=== PATIENT | female | born 1955 | race Caucasian/White ===

== ENCOUNTER 2018-08-13 14:25 | Inpatient (IN) | payer MEDICARE ==
[~2018-08-13] VITALS: Ht 165.1 cm; Wt 68.0 kg
[2018-08-13] MEDS ORDERED: LYRICA100 MG PO (14:30)
[2018-08-13] MEDS ORDERED: LEXAPRO20 MG PO (14:30)
[2018-08-13] MEDS ORDERED: ZANAFLEX4 MG PO (14:31)
[2018-08-13] MEDS ORDERED: TRAMADOL HCL E100 M1 PO (14:32)
[2018-08-13] MEDS ORDERED: ALENDRONATE SOD40 MG PO (14:32)
[2018-08-13] MEDS ORDERED: ATIVAN0.5 MG PO (14:33)
[2018-08-13] MEDS ORDERED: VITAMIN D5000 UNIT PO (14:33)
[2018-08-13] MEDS ORDERED: VITAMIN D10000 UNI1 PO (14:33)
[2018-08-13 18:45] VITALS: BP 115/84
--- NOTE | 2018-08-13 19:20 | NUR ---
PT RESTING ON BED, NO S/S OF ACUTE DISTRESS NOTED AT THIS TIME. PT FAMILY AT BEDSIDE.
[2018-08-13 19:45] VITALS: BP 156/71
[2018-08-13 21:33] VITALS: BP 112/82; BMI 23.5
--- NOTE | 2018-08-13 22:44 | NUR ---
DAUGHTER AT BEDSIDE STATED THAT MAX HAS OSTEOPOROSIS HAS BEEN ON FOSAMAX FOR ONE YEAR. STATED SHE AHS ISSUES WITH ANESTHESIA REQUIRES A LOT TO GO UNDER AND IS HARD TO COME OUT.
[2018-08-14] VITALS (7 sets, daily range): BP systolic 103–133; BP diastolic 52–75
[2018-08-14] MEDS ORDERED: ALBUTEROL SULF8.5 GM (02:27)
[2018-08-14] MEDS ORDERED: ANORO ELLIPTA1 EACH INH (02:31)
[2018-08-14 08:17] LABS: BASOPHILS 0.1 % (0-2); EOSINOPHILS 0.3 % (0-7); HEMATOCRIT 37.9 % (36.0-48.0); HEMOGLOBIN 12.6 g/dL (12-16); IMMATURE GRANULOCYTES 0.2 % (0-5); LYMPHOCYTES 18.6 % (15-50); MCH 30.9 pg (26.0-34.0); MCHC 33.2 g/dL (31.0-37.0); MCV 92.9 fL (80.0-100.0); MEAN PLATELET VOLUME 10.1 fL (7.4-10.4); MONOCYTES 6.9 % (2-11); NEUTROPHILS 73.9 % (40-80); PLATELET COUNT 288 10x3/uL (130-400); RBC 4.08 10x6/uL (4.00-5.40); RDW 13.1 % (11.5-14.5); WBC 10.3 10x3/uL (4.8-10.8)
[2018-08-14 09:02] LABS: ALBUMIN 3.3 g/dL (3.4-5.0); ALKALINE PHOSPHATASE 75 U/L (46-116); ALT (SGPT) 16 U/L (10-68); BILIRUBIN - TOTAL 0.41 mg/dL (0.2-1.3); CALC OSMOLALITY 270 mosm/kg (275-300); CALCIUM 8.1 mg/dL (8.5-10.1); CARBON DIOXIDE 26.9 mmol/L (21.0-32.0); CHLORIDE - SERUM 102 mmol/L (98-107); CREATININE - SERUM 0.8 mg/dL (0.6-1.3); GLUCOSE 114 mg/dL (74-106); POTASSIUM - SERUM 3.6 mmol/L (3.5-5.1); PROTEIN - SERUM 7.1 g/dL (6.4-8.2); SODIUM 136 mmol/L (136-145); UREA NITROGEN 8 mg/dL (7-18); eGFR NON AFRICAN AMERICAN 76 mL/min (90-120)
--- NOTE | 2018-08-14 11:19 | NUR ---
ARRIVE BACK TO ROOM VIA BED FROM OR. LT LEG TAINA WRAPPED IN IMMOBILIZER. BP-123/75, HR-74, O2-95% WITH 2L NC. DC MORPHINE FUR TRAPPER ORDERED. SLEEPING IN BED. AROUSES TO VOICE. DENIES ANY NEEDS. CONTINUE PLAN OF CARE AND SAFETY PRECAUTIONS.
--- NOTE | 2018-08-14 17:00 | NUR ---
ALERT AND ORIENTED X4. LAYING IN BED. LT LEG IMMOBILIZER BRACE ON. DRESSING CLEAN DRY INTACT. PULSE PALPABLE BILATERALLY. TEMPERATURE WNL. DENIES PAIN AT THIS TIME. CONTINUE PLAN OF CARE AND SAFETY PRECUATIONS.
--- NOTE | 2018-08-14 18:49 | OP ---
PATIENT NAME: MAX BANKS MEDICAL RECORD: [id number] :53 LOCATION:D.M3 D.1209 ADMISSION DATE:08/13/18 SURGEON: WANG GONZALES DO DATE OF OPERATION: 08/14/2018 PROCEDURE PERFORMED: Left tibial plateau open reduction and internal fixation. PREOPERATIVE DIAGNOSIS: Closed left displaced lateral tibial plateau fracture. POSTOPERATIVE DIAGNOSIS: Closed left displaced lateral tibial plateau fracture. INDICATIONS: Ms. Banks is a 63-year-old female who fell off a porch on to a [employer] Technologies[employer] block yesterday, striking her left knee on it. She had pain and was not able to bear weight. She was brought to the ER. X-rays were taken and seen to have a tibial plateau fracture. She does not have any signs or symptoms of compartment syndrome. She was informed, due to the displacement and there was a longitudinal split down her shaft, it may not heal without surgery and may displace more. After hearing that, she understood she probably would need surgery and was informed of the risks including infection, bleeding, damage to nerves and vessels, compartment syndrome, continued pain as well as blood clots, pulmonary embolism, and even ; and she signed the consent. SURGEON: Wang Gonzales DO DESCRIPTION OF PROCEDURE: The patient received a block by anesthesia in the preoperative area. He was taken to the operative suite, put in the supine position, given general anesthetic, and an LMA was placed. She was given 2 grams of Ancef prior to starting. The left lower extremity was prepped and draped in sterile fashion. A time-out was performed and everyone was in agreeance with correct side, site, patient, and procedure. The incision was then marked out, hockey stick, along the lateral border of the tibia and then down the shaft. The Esmarch was used to exsanguinate the left lower extremity and the tourniquet was inflated to 350 mmHg, was up for 43 minutes. The incision was then begun with a #10 blade scalpel through the skin. Then, a Bovie was used to go through the fascia and the IT band on the lateral knee. The proximal portion of the anterior tip attachment on the tibia was taken down to clear plate. Plate was then placed in good position and confirmed on AP and lateral. Once I had good position of the plate, it was fixed with K-wires and then 4 screws were put in the proximal plate. One was compression screw and the other 3 were locking. Attention was then drawn to the shaft. Three screws were put down into the shaft at that time, securing the plate down very nicely and the fracture was reduced very well. Two kickstand screws were then put in and then 2 more locking screws were put in more proximally in the plate and then the compression screw was removed from the more proximal holes and changed out for a locking screw. Once these were all locked into place, final x-rays were taken, AP and lateral, confirming good position and good fixation of the fracture, and good joint line reduction. The tourniquet was let down at 43 minutes. Any bleeders were coagulated at that time. The fascia then was loosely closed over the plate with #1 Vicryl in a gguptw-fa-jfzvj fashion and then the skin was closed with 2-0 Vicryl in inverted interrupted. ZipLine was then placed on the incision. Adaptic, 4 x 4, ABD, Webril, and Joel wrap were then placed on the knee. Knee was placed in the knee immobilizer. Prior to the skin being closed, I did aspirate the knee through a superolateral approach with an 18-gauge spinal needle and 60 cc syringe, and 20 mL of estephanie blood was aspirated out of the knee joint. Then, the knee was closed as described. The patient was then awakened OPERATIVE REPORT [id number] MAX BANKS after being dressed and put in knee immobilizer, and taken to recovery in stable condition. BLOOD LOSS: Approximately 50 mL. COMPLICATIONS: None. TRANSINT:[id number] Voice Confirmation ID: [id number] DOCUMENT ID: [id number] WANG GONZALES DO at 1849 CC: [id number] DICTATION DATE: 08/14/18 1051 TETRYL DISSOLVER OPERATOR: 08/14/18 1804 ADM IN [facility] [address] [place] [address]
--- NOTE | 2018-08-14 19:27 | NUR ---
PT IN BED. FAMILY AT BEDSIDE. PT DENIES NEEDS AT THIS TIME.
[2018-08-15] VITALS (7 sets, daily range): BP systolic 91–136; BP diastolic 40–61; Ht 165.1 cm; Wt 68.0 kg
[2018-08-15 07:35] LABS: HEMATOCRIT 33.1 % (36.0-48.0)
[2018-08-15 07:49] LABS: ANION GAP 13.2 mmol/L (8-16); CALCIUM 8.1 mg/dL (8.5-10.1); CARBON DIOXIDE 27.9 mmol/L (21.0-32.0); POTASSIUM - SERUM 3.1 mmol/L (3.5-5.1)
--- NOTE | 2018-08-15 11:13 | NUR ---
IV TO LEFT AC IS LEAKING D/C WITH CATHETER INTACT. RESITED TO RIGHT FOREARM AFTER 2 ATTEMPTS WITH 22G. TOLERATED WELL. GIVEN 15MG TORADOL SLOW IVP FOR C/O LEFT KNEE PAIN LEVEL 9. WILL MONITOR.
--- NOTE | 2018-08-15 12:01 | MORECARE ---
CASE MANAGEMENT DISCHARGE SUMMARY PATIENT: MAX HERNANDEZ UNIT: [id number] ADM DATE: 08/13/18 AGE: 63 : 54 SEX: F ROOM/BED: D.1209 AUTHOR: PRERNA NG PHYSICIAN: REFERRING PHYSICIAN: LISA EVANGELISTA MD DATE OF SERVICE: 08/15/18 Discharge Plan Patient Name: MAX HERNANDEZ Facility: [facility]:[place] : 1955 Planned Disposition: Inpatient Rehab Facility Anticipated Discharge Date: 08/16/18 Discharge Date: Expected LOS: 3 Initial Reviewer: [email or web address] Initial Review Date: 08/13/2018 Generated: 08/15/18 1:01 pm Patient Name: MAX HERNANDEZ Page 54710 at 1201 All edits/amendments must be made on the electronic document DICTATION DATE: 08/15/18 1201 REAR LOAD TRUCK DRIVER: IVANA 08/15/18 1201 RPT#: [id number] DC DATE: STATUS: ADM IN [facility] [address] [place] [address] END OF REPORT
--- NOTE | 2018-08-15 12:08 | MORECARE ---
CASE MANAGEMENT DISCHARGE SUMMARY PATIENT: MAX HERNANDEZ UNIT: [id number] ADM DATE: 08/13/18 AGE: 63 : 54 SEX: F ROOM/BED: D.1209 AUTHOR: PRERNA NG PHYSICIAN: REFERRING PHYSICIAN: LISA EVANGELISTA MD DATE OF SERVICE: 08/15/18 Discharge Plan Patient Name: MAX HERNANDEZ Facility: [facility]:[place] : 1955 Planned Disposition: Inpatient Rehab Facility Anticipated Discharge Date: 08/16/18 Discharge Date: Expected LOS: 3 Initial Reviewer: [email or web address] Initial Review Date: 08/13/2018 Generated: 08/15/18 1:08 pm DCPIA - Discharge Planning Initial Assessment Updated by [email or web address]: Natalie Peres on 08/15/18 12:05 pm * Is the patient Alert and Oriented? Yes * How many steps to enter\exit or inside your home? four * PCP DR Wang Mace * [facility] [address] * Preadmission Environment Home Alone * ADLs Independent * Equipment Cane * Other Equipment None * List name and contact numbers for known caregivers / representatives who currently or will assist patient after discharge: Lesvia Abarca - [facility]- [phone] * Verbal permission to speak to the caregivers and representatives has been obtained from the patient. No * Community resources currently utilized None * Please name any agencies selected above. N/A * Additional services required to return to the preadmission environment? Yes * Can the patient safely return to the preadmission environment? No * Has this patient been hospitalized within the prior 30 days at any hospital? No Last DP export: 08/15/18 11:01 am Patient Name: MAX HERNANDEZ Page 37254 at 1208 All edits/amendments must be made on the electronic document DICTATION DATE: 08/15/181207 POLYGRAPH OPERATOR: IVANA 08/15/181207 RPT#: [id number] DC DATE: STATUS: ADM IN [facility] [address] [place] [address] END OF REPORT
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
--- NOTE | 2018-08-15 15:17 | NUR ---
ALERT AND ORIENTED X4. SITTING UP IN BED. DAUGHTER AT BEDSIDE. [employer] CHARGE SHEET FOR BRACE SIGNED, FAXED TO [employer]. CARMELITA WITH [facility] ENTERS ROOM FOR FITTING FOR BRACE. PAIN MANAGEMENT CONTINUED. SINUS RHYTM ON TELEMETRY. DENIES ANY NEEDS. CONTINUE PLAN OF CARE AND SAFETY PRECAUTIONS.
--- NOTE | 2018-08-15 15:50 | NUR ---
Rehab Prescreening Consult recieved and the chart has been reviewed. Currently she does not have the medical criteria to meet Medicare guidlines for admission to the ARU. Rehab will follow her while she is here and watch for any changes. Discussed with the LILI Juárez. Radha Haynes RN Clinical Liaison, Rehab
--- NOTE | 2018-08-15 18:34 | NUR ---
ALERT AND ORIENTED X4. NO CHANGE. PAIN MANAGEMENT CONTINUED. SINUS RHYTHM ON TELEMETRY. CONTINUE PLAN OF CARE AND SAFETY PRECAUTIONS.
--- NOTE | 2018-08-15 20:45 | NUR ---
PT REQ AND REC'D PRN PAIN MEDICATION AT THIS TIME. WCTM.
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
--- NOTE | 2018-08-16 03:18 | NUR ---
PT RESTING, EYES CLOSED. BED LOW. CL IN REACH. WCTM.
[2018-08-16 04:30] VITALS: BP 114/63
[2018-08-16 06:37] LABS: BASOPHILS 0.2 % (0-2); EOSINOPHILS 1.4 % (0-7); HEMATOCRIT 33.7 % (36.0-48.0); HEMOGLOBIN 11.1 g/dL (12-16); IMMATURE GRANULOCYTES 0.2 % (0-5); LYMPHOCYTES 27.6 % (15-50); MCH 30.7 pg (26.0-34.0); MCHC 32.9 g/dL (31.0-37.0); MCV 93.4 fL (80.0-100.0); MEAN PLATELET VOLUME 10.8 fL (7.4-10.4); MONOCYTES 7.8 % (2-11); NEUTROPHILS 62.8 % (40-80); RBC 3.61 10x6/uL (4.00-5.40); RDW 13.5 % (11.5-14.5); WBC 9.9 10x3/uL (4.8-10.8)
[2018-08-16 06:38] LABS: PLATELET COUNT 229 10x3/uL (130-400)
[2018-08-16 08:00] LABS: CARBON DIOXIDE 27.2 mmol/L (21.0-32.0); CREATININE - SERUM 0.9 mg/dL (0.6-1.3)
[2018-08-16 08:43] LABS: ANION GAP 11.4 mmol/L (8-16); POTASSIUM - SERUM 3.6 mmol/L (3.5-5.1)
[2018-08-16 09:23] VITALS: BP 94/45
[2018-08-16 12:30] VITALS: BP 92/37
[2018-08-16 16:15] VITALS: BP 111/67
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
--- NOTE | 2018-08-16 17:05 | NUR ---
OT NOTE:PT COMPLETED UE AROM AXS. PT COMPLETED SIMPLE HYGIENE TASK WITH SET UP. THANK YOU, BRITNEY MOELLER
--- NOTE | 2018-08-16 18:00 | NUR ---
ALERT AND ORIENTED X4. RESTING IN BED. PAIN MANAGEMENT CONTINUED. NO CHANGE. LT LEG IN IMMOBILIZER ELEVATED ON PILLOW. ICE APPLIED ON KNEE. DENIES ANY NEEDS AT THIS TIME. WAITING FOR REHAB PLACEMENT. CONTINUE PLAN OF CARE AND SAFETY PRECAUTIONS.
--- NOTE | 2018-08-16 19:19 | NUR ---
PT'S LIGHT GOING OFF, WENT TO ANSWER CALL LIGHT PT STATED THAT HER IV IS HURTING. IV SITE LOOKS RED AND SWOLLEN, IV FLUIDS TURNED OFF AT THIS TIME. WILL D/C IV AND START NEW IV. PT A/O X4, RESP EVEN AND NONLABORED ON 2L. BRACE IN PLACE TO LT KNEE. PT ASKING FOR ICE PACK FOR HER KNEE, WILL PROVIDE PT WITH ICE PACK. PT DENIES ANY OTHER NEEDS AT THIS TIME, CALL LIGHT IN REACH, NAD NOTED, WILL CONTINUE PLAN OF CARE.
[2018-08-16 20:00] VITALS: BP 108/50
--- NOTE | 2018-08-16 20:39 | NUR ---
TRIED STARTING NEW IV, WAS UNSUCCESSFUL AT THIS TIME. GAVE 100MG OF ULTRAM FOR PAIN LEVEL OF 10/10. PT DENIES ANY OTHER NEEDS AT THIS TIME, CALL LIGHT IN REACH, NAD NOTED, WILL CONTINUE TO MONITOR.
--- NOTE | 2018-08-16 21:26 | NUR ---
IBUPROFEN GIVEN FOR FEVER OF 100.2, ALSO GAVE ZANAFLEX PER PT REQUEST. HELPED PT TO BATHROOM AND BACK TO BED, PT REFUSED TO HAVE ANOTHER IV STARTED, STATED THAT SHE IS SUPPOSE TO BE GOING TO REHAB TOMORROW. PT DENEIS ANY OTHER NEEDS AT THIS TIME. CALL LIGHT IN REACH, NAD NOTED, WILL CONTINUE TO MONITOR.
--- NOTE | 2018-08-16 22:30 | NUR ---
PT RESTING COMFORTABLY IN BED WITH EYES CLOSED, DID NOT WANT HER PAIN MEDICATION AT THIS TIME. CALL LIGHT IN REACH, NAD NOTED, WILL CONTINUE TO MONITOR.
[2018-08-16 23:57] VITALS: BP 91/46
[2018-08-17 04:30] VITALS: BP 120/52
--- NOTE | 2018-08-17 04:52 | NUR ---
4MG OF DILAUDID GIVEN FOR PAIN LEVEL OF 8/10. ALSO PROVIDED PT WITH ORANGE JUICE. PT DENIES ANY OTHER NEEDS AT THIS TIME. CALL LIGHT IN REACH, NAD NOTED.
--- NOTE | 2018-08-17 05:51 | NUR ---
PT RATES PAIN LEVEL NOW 4/10. DENIES ANY NEEDS AT THIS TIME. CALL LIGHT IN REACH, NAD NOTED.
--- NOTE | 2018-08-17 07:30 | NUR ---
REC'D IN BED AWAKE AND ALERT. RESP EVEN AND ALERT WITH NO DISTRESS NOTED. CAN EXPRESS NEEDS AND WANTS. NO C/O NOTED VOICED. ASSESSMENT COMPLETED. C/BRIAN REACH AT BEDSIDE.
[2018-08-17 08:02] LABS: CALC OSMOLALITY 279 mosm/kg (275-300); CALCIUM 8.1 mg/dL (8.5-10.1); CARBON DIOXIDE 30.1 mmol/L (21.0-32.0); CHLORIDE - SERUM 103 mmol/L (98-107); CREATININE - SERUM 0.8 mg/dL (0.6-1.3); GLUCOSE 111 mg/dL (74-106); POTASSIUM - SERUM 3.5 mmol/L (3.5-5.1); SODIUM 139 mmol/L (136-145); UREA NITROGEN 14 mg/dL (7-18); eGFR NON AFRICAN AMERICAN 76 mL/min (90-120)
[2018-08-17 08:05] LABS: BASOPHILS 0.3 % (0-2); EOSINOPHILS 3.7 % (0-7); HEMATOCRIT 33.2 % (36.0-48.0); HEMOGLOBIN 10.8 g/dL (12-16); IMMATURE GRANULOCYTES 0.1 % (0-5); LYMPHOCYTES 26.8 % (15-50); MCH 30.9 pg (26.0-34.0); MCHC 32.5 g/dL (31.0-37.0); MCV 94.9 fL (80.0-100.0); MEAN PLATELET VOLUME 10.9 fL (7.4-10.4); MONOCYTES 8.4 % (2-11); NEUTROPHILS 60.7 % (40-80); PLATELET COUNT 246 10x3/uL (130-400); RDW 13.5 % (11.5-14.5); WBC 7.7 10x3/uL (4.8-10.8)
--- NOTE | 2018-08-17 09:01 | NUR ---
PT WAS MEDICATED WITH DILUADID 4 MG PER ORDERS FOR C/O PAIN. C/L IN REACH AT BEDSIDE
[2018-08-17 09:12] VITALS: BP 101/45
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
[2018-08-17 12:53] VITALS: BP 107/45
--- NOTE | 2018-08-17 13:07 | NUR ---
WAS MEDICATED WITH DILAUDID 4 MG PER ORDERS FOR C/O LEG PAIN. C/L IN REACH BEDSIDE
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
[2018-08-17] MEDS ORDERED: BAYER CHEWABLE81 MG PO (14:58)
--- NOTE | 2018-08-17 15:12 | NUR ---
OT NOTE: PERFORMED WELL TODAY. PT FRUSTRATED REGARDING STAFF ISSUES. PT STATES THAT SHE WANTS TO GO TO REHAB SO THAT SHE CAN IMPROVE AND RETURN HOME. PT PERFORMING BED MOB WITH MIN ASSIST; GROOMING AND FEEDING WITH SET UP; NWB ON L LE. PT WITH INCREASED PAIN REPORTED. DAVID KU, OTR/L
--- NOTE | 2018-08-17 16:09 | NUR ---
OT NOTE: PT COMPLETED BED MOB TASKS WITH SBA. THANK YOU, BRITNEY MOELLER
--- NOTE | 2018-08-17 16:36 | NUR ---
DC HOME AT THIS TIME VIA PRIVATE CAR.VOICE UNDERSTANDING OF DC ORDERS. WS GIVEN RX OF DILUADID 4 MG Q 6 HRS PRN FOR PAIN TO PT. SON AT BEDSIDE. STABLE CONDITION UPON DC
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
== END 2018-08-17 16:20 | DRG 493 ==
LOC: D.ER 14:25 → D.EDHOLD 20:18 → D.M3 20:18
PROVIDERS: Anesthesiology; Internal Medicine Nephrology; Orthopaedic Surgery; ADMIT Family Medicine; ATTEND Family Medicine
PROC: 0QSH04Z Reposition Left Tibia with Internal Fixation Device, Open Approach (ICD-10-PCS; principal; 2018-08-14 07:03)
DX: S82.142A Displaced bicondylar fracture of left tibia, initial encounter for closed fracture (principal); F17.213 Nicotine dependence, cigarettes, with withdrawal; D62 Acute posthemorrhagic anemia; X58.XXXA Exposure to other specified factors, initial encounter; J44.9 Chronic obstructive pulmonary disease, unspecified; E87.6 Hypokalemia

== ENCOUNTER → 2018-09-01 14:49 | Outpatient (CLI) | payer MEDICARE ==
[2018-08-15 15:28] VITALS: BMI 24.9
[~2018-09-01 14:49] MED LIST: ALBUTEROL SULF8.5 GM; ALENDRONATE SOD40 MG PO; ANORO ELLIPTA1 EACH INH; ATIVAN0.5 MG PO; BAYER CHEWABLE81 MG PO; LEXAPRO20 MG PO; LYRICA100 MG PO; TRAMADOL HCL E100 M1 PO; VITAMIN D10000 UNI1 PO; VITAMIN D5000 UNIT PO; ZANAFLEX4 MG PO
== END | disposition home or self-care (01) ==
LOC: D.CT 14:49
PROVIDERS: ATTEND Family Medicine
DX: H53.10 Unspecified subjective visual disturbances (principal)

== ENCOUNTER 2019-01-20 20:54 | Emergency (ER) | payer MEDICARE ==
[~2019-01-20] VITALS: Ht 165.1 cm; Wt 58.6 kg
[2019-01-20 21:03] VITALS: Ht 165.1 cm; Wt 58.6 kg
[2019-01-20 21:24] LABS: BASOPHILS 0.3 % (0-2); EOSINOPHILS 3.1 % (0-7); HEMATOCRIT 23.3 % (36.0-48.0); HEMOGLOBIN 7.7 g/dL (12-16); IMMATURE GRANULOCYTES 0.1 % (0-5); LYMPHOCYTES 37.8 % (15-50); MCH 28.1 pg (26.0-34.0); MEAN PLATELET VOLUME 8.9 fL (7.4-10.4); MONOCYTES 5.7 % (2-11); RBC 2.74 10x6/uL (4.00-5.40); RDW 15.7 % (11.5-14.5); WBC 6.7 10x3/uL (4.8-10.8)
[2019-01-20 21:25] LABS: PLATELET COUNT 513 10x3/uL (130-400)
[2019-01-20 21:37] LABS: ALBUMIN 3.4 g/dL (3.4-5.0); ANION GAP 9.8 mmol/L (8-16); BILIRUBIN - TOTAL 0.16 mg/dL (0.2-1.3); CALCIUM 8.7 mg/dL (8.5-10.1); CARBON DIOXIDE 29.6 mmol/L (21.0-32.0); CREATININE - SERUM 0.9 mg/dL (0.6-1.3); POTASSIUM - SERUM 3.4 mmol/L (3.5-5.1); PROTEIN - SERUM 6.9 g/dL (6.4-8.2)
[2019-01-21 02:45] VITALS: BP 96/55
== END 2019-01-21 02:37 | disposition other institution (70) ==
LOC: D.ER 20:54
PROVIDERS: Family Medicine
DX: K25.4 Chronic or unspecified gastric ulcer with hemorrhage (principal)

== ENCOUNTER 2020-02-02 08:10 | Day surgery (SDC) | payer MEDICARE ==
[2020-01-31 11:34] LABS: HEMATOCRIT 41.8 % (36.0-48.0); HEMOGLOBIN 13.9 g/dL (12-16); MCH 31.2 pg (26.0-34.0); MCHC 33.3 g/dL (31.0-37.0); MCV 93.9 fL (80.0-100.0); MEAN PLATELET VOLUME 9.7 fL (7.4-10.4); RBC 4.45 10x6/uL (4.00-5.40); RDW 16.4 % (11.5-14.5); WBC 7.2 10x3/uL (4.8-10.8)
[~2020-02-02] VITALS: Ht 162.6 cm; Wt 67.1 kg
[~2020-02-02 08:10] MED LIST changes: +ALENDRONATE SOD10 MG PO; -ALENDRONATE SOD40 MG PO; +SYMBICORT 80-10.2 GM INH; +VITAMIN D1000 UNI1 PO; -VITAMIN D5000 UNIT PO
[2020-02-02 08:46] VITALS: BP 124/67; Ht 162.6 cm; Wt 67.1 kg
[2020-02-02] MEDS ORDERED: DILAUDID4 MG PO (08:49)
--- NOTE | 2020-02-02 15:53 | NUR ---
1555 ANESTHESIA HERE TO RE BLOCK LEFT KNEE.
--- NOTE | 2020-02-02 16:57 | NUR ---
1630 IV REMOVED AND ASSSITED TO BATHROOM WITH WALKER. IMMOBILIZER. VOIDED A LARGE AMT. NO FEELING TO LEFT LEG AFTER SECOND BLOCK. FEET WARM TO TOUCH. INSTRUCTIONS GIVEN. VS STABEL
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
== END 2020-02-02 16:45 | disposition home or self-care (01) ==
LOC: D.OPS 08:10 → D.PAN 10:30 → D.OPS 10:30
PROVIDERS: Anesthesiology; ATTEND Orthopaedic Surgery
DX: T84.84XA Pain due to internal orthopedic prosthetic devices, implants and grafts, initial encounter (principal); M79.605 Pain in left leg; S82.142D Displaced bicondylar fracture of left tibia, subsequent encounter for closed fracture with routine healing; X58.XXXD Exposure to other specified factors, subsequent encounter